=== PATIENT | female | born 1970 | race African-American/Black ===

== ENCOUNTER 2017-05-05 14:46 | Inpatient (IN) | payer OTHER ==
--- NOTE | 2017-05-05 15:26 | PDOC ---
History of Present Illness <Alberto Mackay - Last Filed: 05/05/17 15:26> - General History Source: Patient Exam Limitations: No Limitations - History of Present Illness Initial Comments: 05/05/17 16:05 Patient is a 46 year old morbidly obese female with a significant past medical history of MVP, who presents to the ED with worsening chest pressure and SOB since saturday. Patient states the SOB worsens with exacerbation. She denies any alleviating factors. She denies taking any medications for alleviation. She denies lightheadedness. Patient denies fever, chills, nausea, vomiting, diarrhea. Patient denies dysuria, frequency, hematuria. <Rashad Thornton - Last Filed: 05/05/17 16:16> <Alka Puentes - Last Filed: 05/05/17 20:30> <Melissa Hinojosa - Last Filed: 05/05/17 20:43> - General Chief Complaint: Chest Pain Stated Complaint: CHEST PAIN Time Seen by Provider: 05/05/17 15:24 Past History - Past Medical History Anemia: Yes Asthma: Yes Cardiac Disorders: Yes (HEART MURMUR) - Immunization History Immunization Up to Date: No - Psycho/Social/Smoking Cessation Hx Anxiety: No Suicidal Ideation: No Smoking Status: No Smoking History: Never smoked Number of Cigarettes Smoked Daily: 0 <Alberto Mackay - Last Filed: 05/05/17 15:26> <Rashad Thornton - Last Filed: 05/05/17 16:16> <Alka Puentes - Last Filed: 05/05/17 20:30> <Melissa Hinojosa - Last Filed: 05/05/17 20:43> - Past Medical History Allergies/Adverse Reactions: Allergies Allergy/AdvReac Type Severity Reaction Status Date / Time No Known Allergies Allergy Verified 05/05/17 14:53 Home Medications: Ambulatory Orders NK [No Known Home Medication] 05/05/17 Review of Systems - Review of Systems Able to Perform ROS?: Yes Comments:: 05/05/17 16:05 GENERAL/CONSTITUTIONAL: No fever or chills. No weakness. HEAD, EYES, EARS, NOSE AND THROAT: No change in vision. No ear pain or discharge. No sore throat. CARDIOVASCULAR: + Chest pressure. + SOB. RESPIRATORY: No cough, wheezing, or hemoptysis. GASTROINTESTINAL: No nausea, vomiting, diarrhea or constipation. GENITOURINARY: No dysuria, frequency, or change in urination. MUSCULOSKELETAL: No joint or muscle swelling or pain. No neck or back pain. SKIN: No rash NEUROLOGIC: No headache, vertigo, loss of consciousness, or change in strength/ sensation. ENDOCRINE: No increased thirst. No abnormal weight change. HEMATOLOGIC/LYMPHATIC: No anemia, easy bleeding, or history of blood clots. ALLERGIC/IMMUNOLOGIC: No hives or skin allergy. <Rashad Thornton - Last Filed: 05/05/17 16:16> *Physical Exam - Vital Signs Last Vital Signs Temp Pulse Resp BP Pulse Ox 98.2 F 81 19 135/82 96 05/05/17 14:53 05/05/17 14:53 05/05/17 14:53 05/05/17 14:53 05/05/17 14:53 <Alberto Mackay - Last Filed: 05/05/17 15:26> - Vital Signs Last Vital Signs Temp Pulse Resp BP Pulse Ox 98.2 F 81 19 135/82 96 05/05/17 14:53 05/05/17 14:53 05/05/17 14:53 05/05/17 14:53 05/05/17 14:53 - Physical Exam Comments: 05/05/17 16:06 GENERAL: Morbidly Obese Female. Awake, alert, and fully oriented, in no acute distress. HEAD: No signs of trauma EYES: PERRLA, EOMI, sclera anicteric, conjunctiva clear ENT: Auricles normal inspection, hearing grossly normal, nares patent, oropharynx clear without exudates. Moist mucosa NECK: Some JVD. Normal ROM, supple, no lymphadenopathy, or masses LUNGS: Fine crackles on the bases posteriorly. Breath sounds equal, clear to auscultation bilaterally. No wheezes. HEART: Mitral murmur localized on the left. ABDOMEN: Soft, nontender, normoactive bowel sounds. No guarding, no rebound. No masses EXTREMITIES: Normal range of motion, no edema. No clubbing or cyanosis. No cords, erythema, or tenderness NEUROLOGICAL: Cranial nerves II through XII grossly intact. Normal speech, normal gait SKIN: Warm, Dry, normal turgor, no rashes or lesions noted. <Rashad Thornton - Last Filed: 05/05/17 16:16> - Vital Signs Last Vital Signs Temp Pulse Resp BP Pulse Ox 98.2 F 74 18 120/90 100 05/05/17 14:53 05/05/17 20:18 05/05/17 20:18 05/05/17 20:18 05/05/17 20:18 <Alka Puentes - Last Filed: 05/05/17 20:30> - Vital Signs Last Vital Signs Temp Pulse Resp BP Pulse Ox 98.2 F 60 20 113/75 99 05/05/17 14:53 05/05/17 17:02 05/05/17 17:02 05/05/17 17:02 05/05/17 17:02 <Melissa Hinojosa - Last Filed: 05/05/17 20:43> ED Treatment Course - LABORATORY CBC & Chemistry Diagram: 05/05/17 15:47 05/05/17 15:47 <Rashad Thornton - Last Filed: 05/05/17 16:16> - LABORATORY CBC & Chemistry Diagram: 05/05/17 15:47 05/05/17 17:20 - ADDITIONAL ORDERS Additional order review: Laboratory Results 05/05/17 05/05/17 05/05/17 17:20 16:59 16:15 INR Puncture Site Left radial ABG pH 7.42 ABG pCO2 at Pt Temp 41.1 ABG pO2 at Pt Temp 80.5 ABG HCO3 25.9 ABG O2 Sat (Measured) 95.8 ABG O2 Content 13.9 L ABG Base Excess 1.8 Diaz Test Positive Carboxyhemoglobin 1.7 Methemoglobin 0.6 Oxygen Flow Rate 21% PEEP 0.0 Sodium 138 Potassium 3.7 Chloride 104 Carbon Dioxide 28 Anion Gap 6 L BUN 10 Creatinine 0.8 Creat Clearance w eGFR > 60 Random Glucose 99 Calcium 8.4 L Total Bilirubin 0.5 AST 11 L ALT 12 Alkaline Phosphatase 88 Creatine Kinase Troponin I B-Natriuretic Peptide Total Protein 7.1 Albumin 3.3 L Urine HCG, Qual Blood Type O POSITIVE Antibody Screen Negative 05/05/17 05/05/17 05/05/17 16:08 15:47 15:47 INR 1.11 Puncture Site ABG pH ABG pCO2 at Pt Temp ABG pO2 at Pt Temp ABG HCO3 ABG O2 Sat (Measured) ABG O2 Content ABG Base Excess Diaz Test Carboxyhemoglobin Methemoglobin Oxygen Flow Rate PEEP Sodium Cancelled Potassium Cancelled Chloride Cancelled Carbon Dioxide Cancelled Anion Gap Cancelled BUN Cancelled Creatinine Cancelled Creat Clearance w eGFR Cancelled Random Glucose Cancelled Calcium Cancelled Total Bilirubin Cancelled AST Cancelled ALT Cancelled Alkaline Phosphatase Cancelled Creatine Kinase Cancelled Troponin I Cancelled B-Natriuretic Peptide Cancelled Total Protein Cancelled Albumin Cancelled Urine HCG, Qual Negative Blood Type Antibody Screen 05/05/17 15:47 RBC 3.94 MCV 83.2 MCHC 32.3 RDW 15.8 H MPV 9.1 Neutrophils % 68.0 Lymphocytes % 23.4 Monocytes % 6.5 Eosinophils % 1.3 Basophils % 0.8 - Medications Given in the ED: ED Medications Discontinued Medications Generic Name Dose Route Start Last Admin Trade Name Freq PRN Reason Stop Dose Admin Aspirin 324 mg 05/05/17 15:46 05/05/17 16:25 Asa - PO 05/05/17 15:47 324 mg ONCE ONE Administration Metoprolol Tartrate 5 mg 05/05/17 15:47 05/05/17 16:25 Lopressor Injection - IVPUSH 05/05/17 15:48 5 mg ONCE ONE Administration Morphine Sulfate 4 mg 05/05/17 16:08 05/05/17 16:25 Morphine Injection - IVPUSH 05/05/17 16:09 2 mg ONCE ONE Administration Ondansetron HCl 4 mg 05/05/17 16:08 05/05/17 17:48 Zofran Injection IVPUSH 05/05/17 16:09 Not Given ONCE ONE <Alka Puentes - Last Filed: 05/05/17 20:30> - LABORATORY CBC & Chemistry Diagram: 05/05/17 15:47 05/05/17 17:20 - ADDITIONAL ORDERS Additional order review: Laboratory Results 05/05/17 05/05/17 05/05/17 17:20 16:59 16:15 INR Puncture Site Left radial ABG pH 7.42 ABG pCO2 at Pt Temp 41.1 ABG pO2 at Pt Temp 80.5 ABG HCO3 25.9 ABG O2 Sat (Measured) 95.8 ABG O2 Content 13.9 L ABG Base Excess 1.8 Diaz Test Positive Carboxyhemoglobin 1.7 Methemoglobin 0.6 Oxygen Flow Rate 21% PEEP 0.0 Sodium 138 Potassium 3.7 Chloride 104 Carbon Dioxide 28 Anion Gap 6 L BUN 10 Creatinine 0.8 Creat Clearance w eGFR > 60 Random Glucose 99 Calcium 8.4 L Total Bilirubin 0.5 AST 11 L ALT 12 Alkaline Phosphatase 88 Creatine Kinase Troponin I B-Natriuretic Peptide Total Protein 7.1 Albumin 3.3 L Urine HCG, Qual Blood Type O POSITIVE Antibody Screen Negative 05/05/17 05/05/17 05/05/17 16:08 15:47 15:47 INR 1.11 Puncture Site ABG pH ABG pCO2 at Pt Temp ABG pO2 at Pt Temp ABG HCO3 ABG O2 Sat (Measured) ABG O2 Content ABG Base Excess Diaz Test Carboxyhemoglobin Methemoglobin Oxygen Flow Rate PEEP Sodium Cancelled Potassium Cancelled Chloride Cancelled Carbon Dioxide Cancelled Anion Gap Cancelled BUN Cancelled Creatinine Cancelled Creat Clearance w eGFR Cancelled Random Glucose Cancelled Calcium Cancelled Total Bilirubin Cancelled AST Cancelled ALT Cancelled Alkaline Phosphatase Cancelled Creatine Kinase Cancelled Troponin I Cancelled B-Natriuretic Peptide Cancelled Total Protein Cancelled Albumin Cancelled Urine HCG, Qual Negative Blood Type Antibody Screen 05/05/17 15:47 RBC 3.94 MCV 83.2 MCHC 32.3 RDW 15.8 H MPV 9.1 Neutrophils % 68.0 Lymphocytes % 23.4 Monocytes % 6.5 Eosinophils % 1.3 Basophils % 0.8 - Medications Given in the ED: ED Medications Discontinued Medications Generic Name Dose Route Start Last Admin Trade Name Eden PRN Reason Stop Dose Admin Aspirin 324 mg 05/05/17 15:46 05/05/17 16:25 Asa - PO 05/05/17 15:47 324 mg ONCE ONE Administration Metoprolol Tartrate 5 mg 05/05/17 15:47 05/05/17 16:25 Lopressor Injection - IVPUSH 05/05/17 15:48 5 mg ONCE ONE Administration Morphine Sulfate 4 mg 05/05/17 16:08 05/05/17 16:25 Morphine Injection - IVPUSH 05/05/17 16:09 2 mg ONCE ONE Administration Ondansetron HCl 4 mg 05/05/17 16:08 05/05/17 17:48 Zofran Injection IVPUSH 05/05/17 16:09 Not Given ONCE ONE <Melissa Hinojosa - Last Filed: 05/05/17 20:43> Medical Decision Making - Medical Decision Making Paged Dr. Melton @ 20:30. Awaiting call back. <Alka Puentes - Last Filed: 05/05/17 20:30> - Medical Decision Making 05/05/17 20:12 Patient Name: Lilian Bone THIS IS A PRELIMINARYREPORT FROM [facility] DATE OF SERVICE: 2017-05-05 19:12:47.0 IMAGES: [id number] EXAM: CT angiogram of the thorax with IV contrast HISTORY:Possible pulmonary embolism. COMPARISON: None. FINDINGS:Serial transaxial images of the thorax are available following intravenous contrast agent. Sagittal and coronal reformatted images are available. There is no aneurysmal dilatation of the aorta nor CT evidence of aortic dissection. There is no CT evidence of pulmonary embolism. There are mediastinal lymph nodes measuring up to 1 cm in size as well as a small amount of subcarinal adenopathy suspected. No hilar adenopathy is seen. The lung sanchez demonstrate scarring at the left base and are otherwise clear of an acute process. No acute osseous abnormality is seen IMPRESSION: No CT evidence of pulmonary embolism or aortic dissection. There our scattered mediastinal lymph nodes of questionable clinical significance. There is no active disease of the lungs. THIS DOCUMENT HAS BEEN ELECTRONICALLY SIGNED 05/05/17 20:24 I spoke to patient who tells me that for the past 2 days she has been markedly out of breath with minimal exertion -walking up the block or walking around the mall - she also has a severe right sided chest pain that sits at her chest. EKG shows flattened T waves throughout. CTA shows no PE. Pt is afebrile and she is not coughing and she has no peripheral edema. SHe has fam hx of DM and she is obese. Pt has no other risk factors, however, given the marked change in her ability to ambulate without getting SOB, I will admit her for unstable angina. 05/05/17 20:43 Case d/w Dr. Melton who agrees that pt may have cardiomyopathy as well and will require workup secondary to her sudden chest pain and SOB. <Melissa Hinojosa - Last Filed: 05/05/17 20:43> *DC/Admit/Observation/Transfer - Attestations Physician Attestion: 05/05/17 15:26 I, Dr. Alberto Mackay, attest that this document has been prepared under my direction and personally reviewed by me in its entirety. I further attest, that it accurately reflects all work, treatment, procedures and medical decision -making performed by me. <Alberto Mackay - Last Filed: 05/05/17 15:26> - Attestations Scribe Attestion: 05/05/17 16:09 Documentation prepared by Rashad Thornton, acting as medical lab technologist for Alberto Mackay MD/DO. <Rashad Thornton - Last Filed: 05/05/17 16:16> <Alka Puentes - Last Filed: 05/05/17 20:30> - Discharge Dispostion Admit: Yes <Melissa Hinojosa - Last Filed: 05/05/17 20:43> Diagnosis at time of Disposition: Unstable angina - Discharge Dispostion Condition at time of disposition: Guarded - Referrals Referrals: Hawa Melton MD [Primary Care Provider] -
[2017-05-05] MEDS ORDERED: NITROGLYCERIN SUBLINGUAL 1/150 0.4 MG TAB SL PRN (15:46)
[2017-05-05] MEDS ORDERED: ASPIRIN 81 MG CHEWABLE TABLETS PO ONE ×2 (15:46→20:29)
[2017-05-05] MEDS ORDERED: METOPROLOL TARTRATE 5 MG/5 ML VIAL IVPUSH ONE (15:47)
--- NOTE | 2017-05-05 16:00 | EKG ---
Test Reason : Blood Pressure : / mmHG Vent. Rate : 085 BPM Atrial Rate : 085 BPM P-R Int : 188 ms QRS Dur : 074 ms QT Int : 348 ms P-R-T Axes : 053 007 016 degrees QTc Int : 414 ms SINUS RHYTHM WITH LEFT ATRIAL ABNORMALITY SLOW R WAVE PROGRESSION V1-V3 NONSPECIFIC ST AND T WAVE ABNORMALITY WHEN COMPARED WITH ECG OF 24-JAN-2012 22:17, NO SIGNIFICANT CHANGE WAS FOUND CLINICAL CORRELATION IS RECOMMENDED Confirmed by LIZZY DE LEON MD ([id number]) on 05/05/2017 4:00:17 PM Referred By: Confirmed By:LIZZY DE LEON MD
[2017-05-05] MEDS ORDERED: ONDANSETRON 4 MG/2 ML VIAL IVPUSH ONE (16:08)
[2017-05-05] MEDS ORDERED: morphine CARPU-JECT 4 MG/1 ML DISP.SYRIN IVPUSH ONE (16:08)
[2017-05-05 16:10] LABS: BASOPHIL 0.8 % (0-2.0); EOSINOPHIL 1.3 % (0-4.5); MCH 26.9 pg (25.7-33.7); MCHC 32.3 g/dl (32.0-36.0); MEAN CELL VOLUME 83.2 fl (80-96); MEAN PLT VOLUME 9.1 fl (7.5-11.1); PLATELET COUNT 234 K/MM3 (134-434); RDW 15.8 % (11.6-15.6); WHITE BLOOD COUNT 6.6 K/mm3 (4.0-10.0)
[2017-05-05] MEDS ORDERED: ASPIRIN 81 MG CHEWABLE TABLETS ONE ×3 (16:17→22:12)
[2017-05-05] MEDS ORDERED: METOPROLOL TARTRATE 5 MG/5 ML VIAL ONE (16:18)
[2017-05-05] MEDS ORDERED: morphine CARPU-JECT 4 MG/1 ML DISP.SYRIN ONE ×2 (16:18→16:25)
[2017-05-05 16:21] LABS: ALLENS TEST POSITIVE; ART PUNCT SITE LEFT RADIAL; ARTERIAL BLD GAS O2 SATURATION 95.8 % (90-98.9); ARTERIAL BLOOD GAS BASE EXCESS 1.8 meq/l (-2-2); ARTERIAL BLOOD GAS HCO3 25.9 meq/L (22-26); ARTERIAL BLOOD GAS PO2 80.5 mmHg (80-100); ARTERIAL BLOOD GAS pH 7.42 (7.35-7.45); LPM/O2% 21%; METHEMOGLOBIN 0.6 % (0.4-1.5); PT. ON O2? NO
[2017-05-05 16:31] LABS: INR 1.11 (0.82-1.09); PROTHROMBIN TIME (PATIENT) 12.2 SEC (9.98-11.88)
[2017-05-05 18:13] LABS: ALBUMIN 3.3 g/dl (3.4-5.0); ALK PHOS 88 U/L (45-117); ANION GAP 6 (8-16); BILIRUBIN,TOTAL 0.5 mg/dL (0.2-1.0); CALCIUM 8.4 mg/dL (8.5-10.1); CO2 28 mmol/L (21-32); CREATININE 0.8 mg/dL (0.55-1.02); GLUCOSE,RANDOM 99 mg/dL (74-106); SGOT/AST 11 U/L (15-37); SGPT/ALT 12 U/L (12-78); TOT PROT 7.1 g/dl (6.4-8.2)
[2017-05-05] MEDS ORDERED: ENOXAPARIN NA (PORCINE) 120 MG/0.8 ML DISP.SYRIN SQ SCH (20:30)
[2017-05-05] MEDS ORDERED: ENOXAPARIN NA (PORCINE) 120 MG/0.8 ML DISP.SYRIN SQ ONE (20:45)
[2017-05-05] MEDS ORDERED: CLOPIDOGREL BISULFATE 300 MG TABLET PO ONE (21:03)
[2017-05-05] MEDS ORDERED: CLOPIDOGREL BISULFATE 300 MG TABLET ONE (21:05)
[2017-05-05 21:15] LABS: CPK 88 IU/L (26-192); TROPONIN I < 0.02 ng/ml (0.00-0.05)
--- NOTE | 2017-05-05 22:15 | HP ---
Admitting History and Physical - Admission Chief Complaint: dysnpea / OCHOA History of Present Illness: Patient is a 46 year old morbidly obese female with a significant past medical history of MVP, who presents to the ED with worsening chest pressure and SOB since saturday. Patient states the SOB worsens with exacerbation. She denies any alleviating factors. She denies taking any medications for alleviation. She denies lightheadedness. Patient denies fever, chills, nausea, vomiting, diarrhea. Patient denies dysuria, frequency, hematuria. History Source: Patient, Medical Record Limitations to Obtaining History: No Limitations - Past Medical History Cardiovascular: Yes: Mitral Insufficiency, Murmur, Pulmonary Hypertension. No: AFIB, Aneurysm, Aortic Insufficiency, Aortic Stenosis, CAD, CHF, Deep Vein Thrombosis, HTN, Hyperlipdemia, [place], Other Pulmonary: No: Asthma, Bronchitis, COPD, Pulmonary Embolus Gastrointestinal: Yes: Inflamatory Bowel Disease. No: Constipation, Gastritis ...: No Heme/Onc: No: Anemia, Bleeding Disorder, Cancer - Smoking History Smoking history: Never smoked Aproximately how many cigarettes per day: 0 - Alcohol/Substance Use Hx Alcohol Use: Yes History of Substance Use: reports: None Home Medications - Allergies Allergies/Adverse Reactions: Allergies Allergy/AdvReac Type Severity Reaction Status Date / Time No Known Allergies Allergy Verified 05/05/17 14:53 - Home Medications Home Medications: Ambulatory Orders NK [No Known Home Medication] 05/05/17 Review of Systems - Review of Systems Constitutional: denies: Chills, Diaphoresis, Fever, Lethargy, Loss of Appetite Eyes: reports: No Symptoms HENT: reports: No Symptoms Neck: reports: Decreased ROM Cardiovascular: reports: Shortness of Breath, Other (anterior chest pressure) Respiratory: reports: Exercise Intolerance, SOB, SOB on Exertion Gastrointestinal: reports: No Symptoms Genitourinary: reports: No Symptoms Breasts: reports: No Symptoms Reported Musculoskeletal: reports: No Symptoms Integumentary: reports: No Symptoms Neurological: reports: Pre-Existing Deficit Endocrine: reports: No Symptoms Hematology/Lymphatic: reports: No Symptoms Psychiatric: reports: No Symptoms Physical Examination Vital Signs: Vital Signs Temperature 98.2 F 05/05/17 14:53 Pulse Rate 74 05/05/17 20:18 Respiratory Rate 18 05/05/17 20:18 Blood Pressure 120/90 05/05/17 20:18 O2 Sat by Pulse Oximetry (%) 100 05/05/17 20:18 Constitutional: Yes: Well Nourished, Calm, Obese Eyes: Yes: WNL HENT: Yes: WNL, Atraumatic, Normocephalic Neck: Yes: WNL, Supple, Trachea Midline Cardiovascular: Yes: WNL, Regular Rate and Rhythm Respiratory: Yes: WNL, CTA Bilaterally Gastrointestinal: Yes: WNL, Normal Bowel Sounds, Soft Renal/: Yes: WNL Breast(s): Yes: WNL Musculoskeletal: Yes: WNL Extremities: Yes: WNL Edema: No Edema: LUE: 4+, RUE: 4+, LLE: 4+, RLE: 4+ Peripheral Pulses WNL: Yes Integumentary: Yes: WNL Neurological: Yes: WNL, Alert, Oriented ...Motor Strength: WNL Psychiatric: Yes: WNL, Alert, Oriented Imaging - Results Chest X-ray: Report Reviewed X-ray: Report Reviewed Cat Scan: Report Reviewed EKG: Report Reviewed Problem List - Problems (1) Unstable angina Assessment/Plan: cardiology evaluation echo ordred possible stress test Code(s): I20.0 - UNSTABLE ANGINA (2) Atypical angina Code(s): I20.8 - OTHER FORMS OF ANGINA PECTORIS (3) Obesity (BMI 35.0-39.9 without comorbidity) Code(s): E66.9 - OBESITY, UNSPECIFIED (4) Dyspnea Code(s): R06.00 - DYSPNEA, UNSPECIFIED
[2017-05-05 22:22] LABS: CPK 87 IU/L (26-192); TROPONIN I < 0.02 ng/ml (0.00-0.05)
[2017-05-06 00:13] VITALS: BMI 45.3
[2017-05-06 07:27] LABS: BASOPHIL 0.4 % (0-2.0); EOSINOPHIL 2.1 % (0-4.5); MCH 26.8 pg (25.7-33.7); MCHC 32.3 g/dl (32.0-36.0); MEAN CELL VOLUME 83.1 fl (80-96); MEAN PLT VOLUME 8.8 fl (7.5-11.1); NEUTROPHILS 59.7 % (42.8-82.8); PLATELET COUNT 211 K/MM3 (134-434); RDW 15.4 % (11.6-15.6); WHITE BLOOD COUNT 6.9 K/mm3 (4.0-10.0)
--- NOTE | 2017-05-06 07:37 | CON.CARD ---
Consult Consult Specialty:: cardio Referred by:: natalia Reason for Consultation:: sob - History of Present Illness Chief Complaint: sob History of Present Illness: 46 yo female here with R chest pain and sob. 2 wks ago she developed intense pain in localized area under R breast (2-3 fingerbreadths). lasted most or all of day x2d. then resolved. returned 3d ago, resolved on its own. then returned the next day, again resolved. then returned on DOA yesterday and did not resolve. she notes an intense pleuritic component to the pain which limited her walking yesterday. in walking routine short distance she had to continue to stop every few steps. she notes the pain was intense with breathing, but also describes sob limiting her yesterday--cannot differentiate if all was due to splinting from the pain. no orthopnea. no palpitations, presyncope PMH morbid obesity MV prolapse on echo in past--no h/o chf multiple 2nd degree family members with heart dz, no known CMP/CHF - Past Medical History Cardio/Vascular: Yes: Mitral Insufficiency, Murmur, Pulmonary Hypertension. No : AFIB, Aneurysm, Aortic Insufficiency, Aortic Stenosis, CAD, CHF, Deep Vein Thrombosis, HTN, Hyperlipdemia, [place], Other Pulmonary: No: Asthma, Bronchitis, COPD, Pulmonary Embolus Gastrointestinal: Yes: Inflamatory Bowel Disease. No: Constipation, Gastritis ...: No - Alcohol/Substance Use Hx Alcohol Use: Yes History of Substance Use: reports: None - Smoking History Smoking history: Current some day smoker Have you smoked in the past 12 months: Yes Aproximately how many cigarettes per day: 0 Home Medications - Allergies Allergies/Adverse Reactions: Allergies Allergy/AdvReac Type Severity Reaction Status Date / Time No Known Allergies Allergy Verified 05/05/17 14:53 - Home Medications Home Medications: Ambulatory Orders NK [No Known Home Medication] 05/05/17 Review of Systems - Review of Systems Constitutional: denies: Chills, Fever Eyes: denies: Eye Pain HENT: denies: Nasal Congestion Neck: denies: Stiffness Cardiovascular: denies: Palpitations Respiratory: denies: Orthopnea, PND Gastrointestinal: denies: Diarrhea, Rectal Bleeding Genitourinary: denies: Burning, Hematuria Musculoskeletal: denies: Muscle Pain Integumentary: denies: Rash Neurological: denies: Numbness, Seizure, Syncope Endocrine: denies: Excessive Sweating Hematology/Lymphatic: denies: Excessive Bleeding Vital Signs: Vital Signs Temperature 98.2 F 05/06/17 05:52 Pulse Rate 63 05/06/17 05:52 Respiratory Rate 20 05/06/17 05:52 Blood Pressure 109/68 05/06/17 05:52 O2 Sat by Pulse Oximetry (%) 96 05/06/17 00:13 Constitutional: Yes: No Distress, Obese Eyes: No: Sclera Icterus HENT: No: Nasal Congestion Neck: No: Decreased ROM Respiratory: Yes: CTA Bilaterally. No: Accessory Muscle Use, Rales, Wheezes Gastrointestinal: Yes: Normal Bowel Sounds. No: Distention, Hepatomegaly, Palpable Mass, Tenderness Cardiovascular: Yes: Regular Rate and Rhythm, Other (tenderness over localized area under R breast, ? reproduces pain). No: Rub JVD: No Carotid Bruit: No PMI: Non-Displaced Heart Sounds: Yes: S1, S2. No: Gallop Murmur: No: Systolic Murmur, Diastolic Murmur Musculoskeletal: Yes: Other (No kyphosis) Extremities: No: Cold, Cyanosis Edema: No Peripheral Pulses: 2+ Left Carotid, 2+ Right Carotid, 2+ Left Doralis Pedis, 2+ Right Dorsalis Pedis Integumentary: No: Jaundice Neurological: Yes: Alert, Oriented (x3) Psychiatric: No: Agitated - Other Data Labs, Other Data: INR, PTT INR 1.11 (0.82-1.09) 05/05/17 15:47 Troponin, BNP 05/05/17 05/05/17 20:50 21:35 Troponin I < 0.02 < 0.02 Troponin, BNP 05/05/17 05/05/17 20:50 21:35 Troponin I < 0.02 < 0.02 Laboratory Tests 05/05/17 05/05/17 05/05/17 15:47 16:15 17:20 WBC 6.6 Hgb 10.6 L Plt Count 234 ABG pH 7.42 ABG pCO2 at Pt Temp 41.1 ABG pO2 at Pt Temp 80.5 Oxygen Flow Rate 21% Sodium 138 Potassium 3.7 Carbon Dioxide 28 BUN 10 Creatinine 0.8 AST 11 L ALT 12 Troponin I 05/05/17 05/05/17 20:50 21:35 WBC Hgb Plt Count ABG pH ABG pCO2 at Pt Temp ABG pO2 at Pt Temp Oxygen Flow Rate Sodium Potassium Carbon Dioxide BUN Creatinine AST ALT Troponin I < 0.02 < 0.02 tele: NSR Imaging - Results Cat Scan: Report Reviewed Assessment/Plan CXR: clear lungs/pleura CTA chest: no PE, no aorta aneurysm or dissection, clear lungs/pleura ECG: NSR, normal axis/intervals; no path q's; nonsp T wave flattening anterior leads (no old) ECG x 2: NSR, normal axis/intervals; no path q's; no ST-T abnormality R sided pleuritic CP: -sx's likely m-skel (? costochondritis) -prolonged sx's x most of day on DOA, and still present with deep breaths -trop neg x 2 -ecg WNL -ABG normal -CXR clear, CTA normal -no friction rub (somewhat reduced heart sounds due to habitus)--sx's highly atypical for pericarditis and with normal ECG, this dx is very unlikely -rec NSAIDs course, prn -f/u echo for peric effusion sob: -unclear from history if she had new sob (severe--after few steps) on DOA, or if was all due to splinting from intense pleuritic CP -for echo today -no MV murmur on exam--f/u echo -clear lungs on images -check BNP -will do stress echo if can be scheduled today--alternatively, if BNP and echo benign, stress echo could be deferred while observe if SOB resolves once pleuritic pain is controlled with NSAIDS, and can do as outpt if it continues ( she is very low FRS risk for CAD and, by Sabine lopez, low pre -test probability for obstructive CAD here)
[2017-05-06 07:58] LABS: ALBUMIN 3.1 g/dl (3.4-5.0); ANION GAP 5 (8-16); CALCIUM 8.2 mg/dL (8.5-10.1); CHOLESTEROL 200 mg/dL (50-200); CO2 30 mmol/L (21-32); CREATININE 0.8 mg/dL (0.55-1.02); GLUCOSE,RANDOM 90 mg/dL (74-106); PHOSPHOROUS 3.7 mg/dL (2.5-4.9); SGOT/AST 13 U/L (15-37); SGPT/ALT 12 U/L (12-78)
[2017-05-06 08:03] LABS: ALK PHOS 80 U/L (45-117); BILIRUBIN,TOTAL 0.3 mg/dL (0.2-1.0); CPK 86 IU/L (26-192); LDL CHOLESTEROL (ONLY SJRH) 128 mg/dL (5-100); TOT PROT 6.7 g/dl (6.4-8.2); TROPONIN I < 0.02 ng/ml (0.00-0.05)
--- NOTE | 2017-05-06 09:49 | EKG ---
Test Reason : Blood Pressure : / mmHG Vent. Rate : 065 BPM Atrial Rate : 065 BPM P-R Int : 180 ms QRS Dur : 074 ms QT Int : 402 ms P-R-T Axes : 045 007 022 degrees QTc Int : 418 ms NORMAL SINUS RHYTHM WITH SINUS ARRHYTHMIA CANNOT RULE OUT ANTERIOR INFARCT (CITED ON OR BEFORE 06-MAY-2017) ABNORMAL ECG WHEN COMPARED WITH ECG OF 05-MAY-2017 14:52, NO SIGNIFICANT CHANGE WAS FOUND Confirmed by KALYN CALDERON MD ([id number]) on 05/06/2017 9:48:52 AM Referred By: CYNTHIA BLAKE DR Confirmed By:KALYN CALDERON MD
[2017-05-06] MEDS ORDERED: PANTOPRAZOLE 20 MG TABLET (FP) PO SCH (10:00)
[2017-05-06] MEDS ORDERED: ASPIRIN COATED 81 MG TABLET.EC PO SCH (10:00)
[2017-05-06 18:22] VITALS: BP 140/85; PULSE 87; TEMP 98
--- NOTE | 2017-05-06 19:07 | PN ---
Progress Note (short form) - Note Progress Note: seen and examined at bed side comfortable all chest pain resolved s/p stress test Vital Signs Period Temp Pulse Resp BP Sys/Oliva Pulse Ox Last 24 Hr 98.0 F-99.0 F 63-87 18-20 109-140/68-90 96-100 neck supple heart regular S1/S2 distant Lungs clear bilat abd obese ext no edema / no calf tenderness CBC, BMP 05/06/17 06:00 05/06/17 06:00 Active Medications Aspirin (Ecotrin -) 81 mg PO DAILY [facility] Last Admin: 05/06/17 10:46 Dose: 81 mg Nitroglycerin (Nitrostat -) 0.4 mg SL Q5M PRN PRN Reason: FOR CHEST PAIN Pantoprazole Sodium (Protonix -) 20 mg PO DAILY [facility] Last Admin: 05/06/17 10:46 Dose: 20 mg Problem List - Problems (1) Unstable angina Assessment/Plan: cardiology evaluation echo done s/p stress test all cardiac work up negative Code(s): I20.0 - UNSTABLE ANGINA (2) Atypical angina Code(s): I20.8 - OTHER FORMS OF ANGINA PECTORIS (3) Obesity (BMI 35.0-39.9 without comorbidity) Code(s): E66.9 - OBESITY, UNSPECIFIED (4) Dyspnea Code(s): R06.00 - DYSPNEA, UNSPECIFIED
== END 2017-05-06 20:08 | disposition home or self-care (01) | DRG 311 ==
LOC: JER 14:46 → JERBED 20:42 → J4W 23:23
PROVIDERS: ADMIT Family Medicine; ATTEND Family Medicine
DX: I20.0 Unstable angina (principal); Z68.42 Body mass index [BMI] 45.0-49.9, adult; M94.0 Chondrocostal junction syndrome [Tietze]; E66.01 Morbid (severe) obesity due to excess calories; R07.89 Other chest pain; D64.9 Anemia, unspecified; J45.909 Unspecified asthma, uncomplicated; R01.1 Cardiac murmur, unspecified; I34.0 Nonrheumatic mitral (valve) insufficiency; K58.9 Irritable bowel syndrome, unspecified; I27.2 Other secondary pulmonary hypertension; R06.00 Dyspnea, unspecified; F17.210 Nicotine dependence, cigarettes, uncomplicated; Z95.2 Presence of prosthetic heart valve
CPT/HCPCS: 36415; 36600; 71010-TC; 71275-TC; 80053; 80061; 82375; 82803; 83036; 83050; 83721; 83735; 83880; 84100; 84484; 84703; 85025; 85610; 86850; 86900; 86901; 93005; 93010; 93306-TC; 93351; 99283-25

== ENCOUNTER 2020-12-01 14:20 | Emergency (ER) | payer OTHER ==
[2020-12-01 15:07] VITALS: BP 138/81; PULSE 75; TEMP 98.1; BMI 45.4
[2020-12-01] MEDS ORDERED: IBUPROFEN 600 MG TABLET (FP) PO ONE ×2 (15:41→15:48)
== END 2020-12-01 17:07 | disposition home or self-care (01) ==
LOC: JERFT 14:20
DX: M65.331 Trigger finger, right middle finger (principal); M79.644 Pain in right finger(s)
CPT/HCPCS: 73130-TC-RT-FY; 99283-25

== ENCOUNTER 2021-07-29 15:44 | Emergency (ER) | payer OTHER ==
[2021-07-29 15:51] VITALS: BP 110/73; PULSE 80; TEMP 98.4; BMI 45.4
== END 2021-07-29 18:28 | disposition home or self-care (01) ==
LOC: JERFT 15:44
DX: M25.532 Pain in left wrist (principal)
CPT/HCPCS: 73110-TC-LT-FY; 73130-TC-LT-FY; 99284-25

== ENCOUNTER 2021-10-19 11:43 | Day surgery (SDC) | payer OTHER ==
[2021-10-19] MEDS ORDERED: FERRIC CARBOXYMALTOSE 750 MG in SODIUM CHLORIDE 250 ML IVPB ONE (12:30)
[2021-10-19 13:07] VITALS: TEMP 98.1
[2021-10-19 13:56] VITALS: BP 139/75; PULSE 68
== END 2021-10-19 13:45 | disposition home or self-care (01) ==
LOC: FINFUSION 11:43 → FM/S 11:49 → FINFUSION 13:45
PROVIDERS: ATTEND Family Medicine
PROC: 3E033GC Introduction of Other Therapeutic Substance into Peripheral Vein, Percutaneous Approach (ICD-10-PCS; principal; 2021-10-19)
DX: D50.9 Iron deficiency anemia, unspecified (principal)
CPT/HCPCS: 81025; 96365; J1439

== ENCOUNTER 2021-10-26 11:59 | Day surgery (SDC) | payer OTHER ==
[2021-10-26 12:54] VITALS: TEMP 98.3
[2021-10-26] MEDS ORDERED: FERRIC CARBOXYMALTOSE 750 MG in SODIUM CHLORIDE 250 ML IVPB ONE (13:00)
[2021-10-26 13:31] VITALS: BP 132/66; PULSE 73
== END 2021-10-26 15:23 | disposition home or self-care (01) ==
LOC: FINFUSION 11:59 → FM/S 12:02 → FINFUSION 15:23
PROVIDERS: ATTEND Family Medicine
PROC: 3E033GC Introduction of Other Therapeutic Substance into Peripheral Vein, Percutaneous Approach (ICD-10-PCS; principal; 2021-10-26)
DX: D50.9 Iron deficiency anemia, unspecified (principal)
CPT/HCPCS: 81025; 96365; J1439

== ENCOUNTER 2024-03-18 14:16 | Emergency (ER) | payer OTHER ==
[2024-03-18 14:38] VITALS: BP 126/92; PULSE 79; RESP 18; TEMP 98.4; BMI 45.7
== END 2024-03-18 16:56 | disposition home or self-care (01) ==
LOC: JERFT 14:16
DX: S66.511A Strain of intrinsic muscle, fascia and tendon of left index finger at wrist and hand level, initial encounter (principal); M25.532 Pain in left wrist; M79.18 Myalgia, other site; M25.522 Pain in left elbow; W10.9XXA Fall (on) (from) unspecified stairs and steps, initial encounter
CPT/HCPCS: 72100-TC-FY; 73070-TC-LT-FY; 73110-TC-LT-FY; 73130-TC-LT-FY; 73140-TC-LT-FY; 73521-TC-FY; 99284-25